=== PATIENT | male | born 1950 | race Two or more races ===

== ENCOUNTER 2022-12-05 11:52 | Emergency (ER) | payer MEDICARE, OTHER ==
[~2022-12-05] VITALS: Ht 158.8 cm; Wt 78.5 kg
[2022-12-05 12:13] VITALS: BP 136/76
--- NOTE | 2022-12-05 15:17 | NUR ---
ATTEMPTED TO BRING PT BACK, NOT FOUND IN LOBBY/OUTSIDE
--- NOTE | 2022-12-05 15:34 | NUR ---
CALLED PATIENT IN WAITING ROOM. NO ANSWER
--- NOTE | 2022-12-05 16:01 | NUR ---
LAST ATTEMPT, NOT FOUND
--- NOTE | 2022-12-05 16:01 | NUR ---
PATIENT LEFT WITHOUT BEING SEEN BY DR. HASKINS. NO FURTHER CARE PROVIDED FOR PATIENT.
== END 2022-12-05 15:17 | disposition left against medical advice (07) ==
LOC: MED 11:52
DX: M25.571 Pain in right ankle and joints of right foot (principal); Z53.21 Procedure and treatment not carried out due to patient leaving prior to being seen by health care provider
CPT/HCPCS: 99281

== ENCOUNTER 2022-12-30 09:29 | Emergency (ER) | payer MEDICARE, OTHER ==
[~2022-12-30] VITALS: Ht 165.1 cm; Wt 79.1 kg
[2022-12-30 09:56] VITALS: BP 123/67
--- NOTE | 2022-12-30 09:59 | NUR ---
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
[2022-12-30] MEDS ORDERED: KETOROLAC 30 MG/ML VIAL IM ONE (10:15)
[2022-12-30] MEDS ORDERED: DICL20GE TP (10:52)
[2022-12-30] MEDS ORDERED: ACET-10509 PO (10:52)
--- NOTE | 2022-12-30 11:24 | NUR ---
AMBULATES WITH STEADY GAIT
[2022-12-30 11:34] VITALS: BP 123/67
== END 2022-12-30 11:34 | disposition home or self-care (01) ==
LOC: MED 09:29
DX: M79.671 Pain in right foot (principal); Z79.899 Other long term (current) drug therapy; Z98.890 Other specified postprocedural states
CPT/HCPCS: 96372; 99283; J1885

== ENCOUNTER 2023-08-31 13:22 | Emergency (ER) | payer MEDICARE, OTHER ==
[~2023-08-31] VITALS: Ht 167.6 cm; Wt 72.6 kg
[~2023-08-31 13:22] MED LIST: ACET-10509 PO; DICL20GE TP
[2023-08-31 13:40] VITALS: BP 134/70; TEMP 98
[2023-08-31 14:37] VITALS: O2SAT 99
[2023-08-31 14:48] LABS: APPEARANCE,URINE CLEAR (CLEAR); BILIRUBIN,URINE NEGATIVE (NEGATIVE); BLOOD, URINE NEGATIVE (NEGATIVE); COLOR,URINE YELLOW (YELLOW); LEUKOCYTE ESTERASE ,URINE NEGATIVE (NEGATIVE); NITRITE, URINE NEGATIVE (NEGATIVE); PH,URINE 6.5 (5.0-9.0); PROTEIN,URINE NEGATIVE (NEGATIVE); UGLUCOSE NEGATIVE (NEGATIVE); UROBILINOGEN,URINE 0.2 EU/dL (0.2 - 1)
[2023-08-31 14:48] LABS: BASOPHILS % (AUTO) 0.4 % (0.0-2.0); EOSINOPHILS # (AUTO) 0.1 K/uL (0-0.4); EOSINOPHILS % (AUTO) 1.8 % (0.0-4.0); HEMATOCRIT 42.2 % (36-52); HEMOGLOBIN 14.3 g/dL (12.0-18.0); LYMPHOCYTES % (AUTO) 20.3 % (20.5-51.1); MEAN CORPUSCULAR HEMOGLOBIN 30 pg (27-31); MEAN CORPUSCULAR HGB CONC 34 g/dL (33-37); MEAN CORPUSCULAR VOLUME 87.6 fL (80-94); MONOCYTES # (AUTO) 0.4 K/uL (0.8-1.0); NEUTROPHILS # (AUTO) 3.3 K/uL (1.8-7.7); NEUTROPHILS % (AUTO) 69.5 % (42.2-75.2); PLATELET COUNT (AUTO) 167 K/uL (140-450); RED BLOOD CELL COUNT(AUTO) 4.81 MIL/uL (4.20-6.10); RED CELL DISTRIBUTION WIDTH 13.5 % (11.6-13.7); WHITE BLOOD COUNT (AUTO) 4.7 K/uL (4.8-10.8)
[2023-08-31 15:17] LABS: ANION GAP 10.5 (8-16); CALCIUM 9.5 mg/dL (8.5-10.1); CARBON DIOXIDE 28.4 mmol/L (21-32); CHLORIDE 100 mmol/L (98-107); CREATININE 1.1 mg/dL (0.6-1.3); GLUCOSE 148 mg/dL (74-106); POTASSIUM 3.9 mmol/L (3.5-5.1); SODIUM SERUM 135 mmol/L (136-145); UREA NITROGEN, BLOOD 15 mg/dL (7-18)
[2023-08-31 15:21] LABS: ALANINE AMINOTRANSFERASE 47 U/L (12-78); ALBUMIN 3.5 g/dL (3.4-5.0); ALKALINE PHOSPHATASE 78 U/L (50-136); ASPARTATE AMINOTRANSFERASE 27 U/L (15-37); BILIRUBIN,DIRECT 0.1 mg/dL (0.0-0.3); LIPASE 39 U/L (16-77); TOTAL BILIRUBIN 0.4 mg/dL (0.0-1.0)
[2023-08-31] MEDS ORDERED: ONDANSETRON 4 MG/2 ML VIAL IVP ONE (15:40)
[2023-08-31] MEDS ORDERED: ONDA-188 SL (16:41)
[2023-08-31 16:58] VITALS: BP 134/70; PULSE 88; TEMP 98; O2SAT 99
== END 2023-08-31 17:01 | disposition home or self-care (01) ==
LOC: MED 13:22
DX: R42 Dizziness and giddiness (principal); R51.9 Headache, unspecified; Z79.899 Other long term (current) drug therapy
CPT/HCPCS: 36415; 70450; 71045; 80048; 80076; 81003; 82948; 83690; 83880; 84484; 85025; 85379; 93005; 96374; 99285; J2405

== ENCOUNTER 2023-10-16 08:13 | Emergency (ER) | payer MEDICARE, OTHER ==
[~2023-10-16] VITALS: Ht 167.6 cm; Wt 72.6 kg
[~2023-10-16 08:13] MED LIST changes: +ONDA-188 SL
[2023-10-16 08:27] VITALS: BP 127/78; PULSE 61; RESP 18; TEMP 97.8; O2SAT 96
[2023-10-16 09:09] VITALS: O2SAT 96
[2023-10-16] MEDS ORDERED: LOTC TP (09:19)
[2023-10-16] MEDS ORDERED: PRED20TA5 PO (09:19)
[2023-10-16 09:45] VITALS: BP 122/70; PULSE 78; RESP 16; TEMP 98; O2SAT 99
== END 2023-10-16 09:45 | disposition home or self-care (01) ==
LOC: MED 08:13
DX: H93.11 Tinnitus, right ear (principal); B35.6 Tinea cruris; H57.11 Ocular pain, right eye; I10 Essential (primary) hypertension; Z79.899 Other long term (current) drug therapy
CPT/HCPCS: 99283

== ENCOUNTER 2023-10-21 14:09 | Emergency (ER) | payer MEDICARE, OTHER ==
[~2023-10-21] VITALS: Ht 167.6 cm; Wt 76.2 kg
[~2023-10-21 14:09] MED LIST changes: +LOTC TP; +PRED20TA5 PO
[2023-10-21 16:06] VITALS: BP 98/80; PULSE 102; RESP 18; TEMP 97.8; O2SAT 95
[2023-10-21 17:11] VITALS: O2SAT 95
[2023-10-21] MEDS: ACETAMINOPHEN 325 MG TAB PO ONE (17:28)
[2023-10-21] MEDS: GABAPENTIN 300 MG CAP PO ONE (17:29)
[2023-10-21 17:34] LABS: BASOPHILS % (AUTO) 0.4 % (0.0-2.0); EOSINOPHILS # (AUTO) 0.1 K/uL (0-0.4); EOSINOPHILS % (AUTO) 1.3 % (0.0-4.0); HEMATOCRIT 45.6 % (36-52); HEMOGLOBIN 15.2 g/dL (12.0-18.0); LYMPHOCYTES # (AUTO) 1.7 K/uL (2.0-11.5); LYMPHOCYTES % (AUTO) 26.2 % (20.5-51.1); MEAN CORPUSCULAR HEMOGLOBIN 30 pg (27-31); MEAN CORPUSCULAR HGB CONC 33 g/dL (33-37); MEAN CORPUSCULAR VOLUME 88.8 fL (80-94); MONOCYTES # (AUTO) 0.6 K/uL (0.8-1.0); MONOCYTES % (AUTO) 8.8 % (1.7-9.3); NEUTROPHILS # (AUTO) 4.1 K/uL (1.8-7.7); NEUTROPHILS % (AUTO) 63.3 % (42.2-75.2); PLATELET COUNT (AUTO) 149 K/uL (140-450); RED BLOOD CELL COUNT(AUTO) 5.13 MIL/uL (4.20-6.10); RED CELL DISTRIBUTION WIDTH 14.1 % (11.6-13.7); WHITE BLOOD COUNT (AUTO) 6.4 K/uL (4.8-10.8)
[2023-10-21 17:40] VITALS: BP 120/66; PULSE 73; RESP 14; O2SAT 97
[2023-10-21 17:54] LABS: ANION GAP 12.3 (8-16); CARBON DIOXIDE 29.1 mmol/L (21-32); CHLORIDE 101 mmol/L (98-107); CREATININE 1.2 mg/dL (0.6-1.3); GLUCOSE 123 mg/dL (74-106); POTASSIUM 4.4 mmol/L (3.5-5.1); SODIUM SERUM 138 mmol/L (136-145); UREA NITROGEN, BLOOD 17 mg/dL (7-18)
[2023-10-21 17:58] LABS: ALANINE AMINOTRANSFERASE 62 U/L (12-78); ALBUMIN 3.9 g/dL (3.4-5.0); ALKALINE PHOSPHATASE 74 U/L (50-136); ASPARTATE AMINOTRANSFERASE 27 U/L (15-37); BILIRUBIN,DIRECT 0.1 mg/dL (0.0-0.3); MAGNESIUM 1.8 mg/dL (1.8-2.4); PHOSPHORUS 4.2 mg/dL (2.5-4.9); TOTAL BILIRUBIN 0.5 mg/dL (0.0-1.0); TOTAL PROTEIN, SERUM 8.3 g/dL (6.4-8.2)
[2023-10-21] MEDS ORDERED: MECL-303 PO (18:52)
== END 2023-10-21 18:58 | disposition home or self-care (01) ==
LOC: MED 14:09
DX: R20.2 Paresthesia of skin (principal); R42 Dizziness and giddiness; I10 Essential (primary) hypertension; E11.9 Type 2 diabetes mellitus without complications; Z79.4 Long term (current) use of insulin; Z79.899 Other long term (current) drug therapy
CPT/HCPCS: 36415; 70450; 71045; 80048; 80076; 82948; 83735; 84100; 84484; 85025; 93005; 99285

== ENCOUNTER 2023-12-07 07:15 | Emergency (ER) | payer MEDICARE, OTHER ==
[~2023-12-07] VITALS: Ht 165.1 cm; Wt 77.1 kg
[~2023-12-07 07:15] MED LIST changes: +MECL-303 PO
[2023-12-07 07:29] VITALS: BP 126/61; PULSE 65; RESP 16; TEMP 97; O2SAT 97
[2023-12-07] MEDS: NITROGLYCERIN 0.4 MG TAB SL ONE (07:46)
[2023-12-07 07:57] LABS: BASOPHILS % (AUTO) 0.8 % (0.0-2.0); EOSINOPHILS # (AUTO) 0.2 K/uL (0-0.4); EOSINOPHILS % (AUTO) 5.1 % (0.0-4.0); HEMATOCRIT 42.3 % (36-52); HEMOGLOBIN 14.1 g/dL (12.0-18.0); LYMPHOCYTES # (AUTO) 1.3 K/uL (2.0-11.5); MEAN CORPUSCULAR HEMOGLOBIN 29 pg (27-31); MEAN CORPUSCULAR HGB CONC 33 g/dL (33-37); MONOCYTES # (AUTO) 0.5 K/uL (0.8-1.0); MONOCYTES % (AUTO) 10.8 % (1.7-9.3); NEUTROPHILS # (AUTO) 2.7 K/uL (1.8-7.7); NEUTROPHILS % (AUTO) 56.3 % (42.2-75.2); PLATELET COUNT (AUTO) 144 K/uL (140-450); RED BLOOD CELL COUNT(AUTO) 4.81 MIL/uL (4.20-6.10); RED CELL DISTRIBUTION WIDTH 14.2 % (11.6-13.7); WHITE BLOOD COUNT (AUTO) 4.8 K/uL (4.8-10.8)
[2023-12-07 08:08] LABS: ANION GAP 11.4 (8-16); CALCIUM 8.7 mg/dL (8.5-10.1); CARBON DIOXIDE 25.9 mmol/L (21-32); CHLORIDE 104 mmol/L (98-107); CREATININE 1.2 mg/dL (0.6-1.3); GLUCOSE 125 mg/dL (74-106); POTASSIUM 4.3 mmol/L (3.5-5.1); SODIUM SERUM 137 mmol/L (136-145); UREA NITROGEN, BLOOD 17 mg/dL (7-18)
[2023-12-07 08:17] LABS: ALANINE AMINOTRANSFERASE 36 U/L (12-78); ALBUMIN 3.6 g/dL (3.4-5.0); ALKALINE PHOSPHATASE 71 U/L (50-136); ASPARTATE AMINOTRANSFERASE 26 U/L (15-37); BILIRUBIN,DIRECT 0.2 mg/dL (0.0-0.3); TOTAL BILIRUBIN 0.6 mg/dL (0.0-1.0); TOTAL PROTEIN, SERUM 7.2 g/dL (6.4-8.2)
[2023-12-07] MEDS: ASPIRIN 81 MG TAB.CHEW PO ONE (09:03)
[2023-12-07 09:48] VITALS: BP 104/54; PULSE 71; RESP 16; TEMP 97; O2SAT 95
== END 2023-12-07 09:40 | disposition left against medical advice (07) ==
LOC: MED 07:15
DX: R07.89 Other chest pain (principal); E11.9 Type 2 diabetes mellitus without complications; I10 Essential (primary) hypertension; Z79.1 Long term (current) use of non-steroidal anti-inflammatories (NSAID); Z79.899 Other long term (current) drug therapy
CPT/HCPCS: 36415; 71045; 80048; 80076; 83880; 84484; 85025; 85379; 93005; 99285